=== PATIENT | female | born 1955 | race Hispanic/Latino ===

== ENCOUNTER 2017-08-10 10:52 | Outpatient (CLI) | payer BC | END 2017-08-10 10:53 | disposition home or self-care (01) | LOC: BICRAD 10:52 | PROVIDERS: ATTEND Family Medicine | DX: M79.641 Pain in right hand (principal) ==

== ENCOUNTER 2018-04-20 09:01 | Outpatient (CLI) | payer BC ==
--- NOTE | 2018-04-20 10:07 | RAD ---
CERVICAL SPINE FOUR VIEWS: History: Neck pain. Right arm radiculopathy. FINDINGS: Vertebral body height and alignment are maintained. Cervicothoracic junction intact. No acute fractur e, dislocation, or aggressive osseous erosions. Calcification overlies each carotid bifurcation. IMPRESSION: No acute osseous abnormalities are demonstrated. Atherosclerosis. POS: [facility]
== END 2018-04-20 09:02 | disposition home or self-care (01) ==
LOC: BICRAD 09:01
PROVIDERS: ATTEND Family Medicine
DX: M54.2 Cervicalgia (principal); I70.90 Unspecified atherosclerosis
CPT/HCPCS: 72040

== ENCOUNTER 2018-05-30 08:12 | Outpatient (CLI) | payer BC | END 2018-05-30 08:13 | disposition home or self-care (01) | LOC: BICMAMMO 08:12 | PROVIDERS: ATTEND Family Medicine | DX: Z12.31 Encounter for screening mammogram for malignant neoplasm of breast (principal) | CPT/HCPCS: 77063; 77067 ==

== ENCOUNTER 2018-06-14 09:02 | Outpatient (CLI) | payer BC ==
--- NOTE | 2018-06-14 09:59 | ULT ---
LIMITED RIGHT BREAST ULTRASOUND: Date: 06/14/18 PROVIDED CLINICAL HISTORY: Abnormal mammogram. FINDINGS: Limited sonographic interrogation of the right breast was performed at the 10 o'clock position in the region of mammographic concern. There is a 5.0 mm hypoechoic mass present with a small hypoechoic ta il. The margins of this process are somewhat lobulated. There is no definite posterior shadowing. Thi s approximates the chest wall on sonography. IMPRESSION: BIRADS Category 4 - Suspicious abnormality. Biopsy is recommended. 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 POS: [facility]
== END 2018-06-14 09:03 | disposition home or self-care (01) ==
LOC: BICMAMMO 09:02
PROVIDERS: ATTEND Family Medicine
DX: R92.2 Inconclusive mammogram (principal); N64.89 Other specified disorders of breast
CPT/HCPCS: G0279

== ENCOUNTER → 2018-06-19 | Day surgery (SDC) | payer BC ==
--- NOTE | 2018-06-19 14:37 | ULT ---
SONOGRAPHIC GUIDED RIGHT BREAST MASS BIOPSY AND CLIP PLACEMENT: History: Right breast mass. FINDINGS: After explaining the procedure and answering all questions, the small hypoechoic mass at the 10 o'alan ck position right breast was visualized. Sterile technique, buffered local anesthesia, sonographic gu idance and an infralateral approach were used to carefully advance a 14 gauge biopsy needle to the le walter of the mass. Position was confirmed with sonography. A total of three passes were made. Tissue ev entually submitted to pathology for evaluation. Localization clip was placed in the biopsy bed under sonographic guidance. Post procedure imaging shows no evidence of complication. Patient tolerated the procedure well and was dismissed in good condition. IMPRESSION: Technically successful sonographically guided right breast mass biopsy. Pathology is pending. POS: [facility]
== END ==
LOC: BICULT 12:46
PROVIDERS: ATTEND Family Medicine
PROC: 0HBT3ZX Excision of Right Breast, Percutaneous Approach, Diagnostic (ICD-10-PCS; principal; 2018-06-19)
DX: N62 Hypertrophy of breast (principal)
CPT/HCPCS: 19083; 88305; 88341; 88342

== ENCOUNTER 2018-07-20 06:22 | Outpatient (CLI) | payer BC ==
[2018-07-20 12:15] LABS: #Eosinphils 0.1 thou/uL (0.0-0.7); #Lymphocytes 2.1 thou/uL (1.20-3.40); #Monocytes 0.3 thou/uL (0.11-0.59); #Neutrophils 3.3 thou/uL (1.40-6.50); %Basophils 0.4 % (0.0-1.0); %Eosinophils 2.3 % (0.0-10.0); %Lymphocytes 36.5 % (21.0-51.0); %Monocytes 5.7 % (0.0-10.0); %Neutrophils 55.3 % (42.0-75.0); Hemoglobin 13.6 g/dL (12.0-16.0); Mean Corpuscular HGB CONC 33.5 g/dL (32.0-36.0); Mean Corpuscular Volume 89.6 fL (78.0-98.0); Mean Platelet Volume 6.9 fL (7.4-10.4); Platelet Count 255 thou/uL (130-400); RBC Distribution Width 11.8 % (11.5-14.5); Red Blood Cell (RBC) Count 4.52 mill/uL (4.20-5.40); White Blood Cell (WBC) Count 5.9 thou/uL (4.8-10.8)
[2018-07-20 12:36] LABS: Anion Gap 12 mmol/L (10-20); BUN (Urea Nitrogen) 19 mg/dL (9.8-20.1); Calc. Creatinine Clearance 0 mL/min (70-130); Calcium 9.4 mg/dL (7.8-10.44); Carbon Dioxide 26 mmol/L (23-31); Chloride 104 mmol/L (98-107); Estimated GFR-MDRD Greater than 90; Glucose 96 mg/dL (80-115); Sodium 138 mmol/L (136-145)
== END 2018-07-20 06:23 | disposition home or self-care (01) ==
LOC: LABBT 06:22
PROVIDERS: ATTEND Specialist
DX: Z01.812 Encounter for preprocedural laboratory examination (principal); N64.89 Other specified disorders of breast
CPT/HCPCS: 80048; 85025

== ENCOUNTER 2018-07-24 07:01 | Day surgery (SDC) | payer BC ==
[2018-07-20 11:17] VITALS: BMI 19.3
[2018-07-24] MEDS ORDERED: CEFAZOLIN 2 GM/50 ML BAG ONE (08:32)
[2018-07-24] MEDS ORDERED: Ketorolac Tromethamine 30 MG/ML VIAL ONE (08:32)
[2018-07-24] MEDS ORDERED: Bupivacaine/Epinephrine 0.25% 30 ML VIAL ONE (09:50)
[2018-07-24] MEDS ORDERED: Fentanyl 100 MCG/2 ML VIAL ONE (09:59)
[2018-07-24] MEDS ORDERED: Dexamethasone 20 MG/5 ML VIAL ONE (12:57)
[2018-07-24] MEDS ORDERED: PHENYLEPHRINE-NS 100 MCG/ML 10 ML SYRINGE ONE (12:57)
[2018-07-24] MEDS ORDERED: PROPOFOL 200 MG/20 ML VIAL ONE (12:57)
[2018-07-24] MEDS ORDERED: Ondansetron PF 4 MG/2 ML Vial ONE (12:57)
--- NOTE | 2018-07-24 13:01 | MMO ---
RADIOGRAPH SURGICAL SPECIMEN: DATE: 07/24/2018. HISTORY: A 63-year-old female with right breast cancer demonstrated by ultrasound-guided biopsy. This is a po st needle localization surgical excisional specimen. FINDINGS: The specimen does contain the biopsy clip. IMPRESSION: 1. Successful mammographically guided right breast needle localization. 2. Successful right breast excisional biopsy. POS: [facility]
--- NOTE | 2018-07-25 11:52 | MMO ---
MAMMOGRAPHIC GUIDED NEEDLE AND WIRE LOCALIZATION OF RIGHT BREAST BIOPSY MARKER CLIP: 07/24/2018 HISTORY: Patient with recent biopsy demonstrating papillary/hypoplastic lesion. Pathology results also sugges hannah excisional biopsy. TECHNIQUE: After informed consent was obtained, the biopsy marker clip was localized in the CC projection with a grid localizer. An area was marked and meticulously prepped and draped in the usual sterile fashion . The skin and subcutaneous tissues were infiltrated with buffered 1% Lidocaine for local anesthesia . A 5 cm [place] localization needle was advanced, followed by CC and lateral medical projections. The wire was then advanced, and follow-up imaging was obtained. A dry, sterile dressing was placed, and the patient was transported to the operating room for excisional biopsy. The patient tolerated the procedure well and without immediate complication. A specimen mammogram was performed, which did demonstrate the localization wire adjacent to the biops y marker clip in the area of increased density within the provided specimen. IMPRESSION: Technically successful mammographic-guided needle and wire localization of right breast biopsy marker clip. POS: [facility]
--- NOTE | 2018-07-25 14:59 | OP ---
DATE OF PROCEDURE: 07/24/2018 PREOPERATIVE DIAGNOSIS: Right breast atypical lesion (seen on ultrasound-guided needle biopsy). POSTOPERATIVE DIAGNOSIS: Right breast atypical lesion (seen on ultrasound-guided needle biopsy). OPERATION PERFORMED: Right breast needle localized excisional biopsy. ANESTHESIA: General with laryngeal mask airway. INDICATIONS: The patient is a 63-year-old female. She recently had a radiographic abnormalities, which prompted a biopsy of the right breast. This revealed a small area of atypical tissue for which a completion excisional biopsy was recommended. She presents for this purpose. DESCRIPTION OF OPERATION: Informed consent was obtained, the patient was taken to the operating room and general anesthesia obtained. The patient supine position. She had undergone preoperative mammographic needle localization of the right breast mass. This entered from a superior location on the right breast and extended inferiorly down towards the nipple. The lesion was at about the 11 o'clock radian in the upper outer right breast. The breast and needle were prepped with a ChloraPrep and draped in sterile fashion. Local anesthetic was infiltrated using 0.25% Marcaine with epinephrine and a transverse incision was created as a counter incision a couple of cm inferior to the needle insertion site. Dissection was carried through skin and subcutaneous tissue. Flaps were raised in all directions and then attention was turned superiorly. The needle was identified and this level was about 3 cm from the tip of the needle. The clip was at about 1 cm from the tip of the needle. The needle was removed and the wire was then relocated to the incision rather than through the skin. The tissue in which two wire entered was grasped with Allis clamps and a completion lumpectomy was then performed around the needle. The dissection was carried down to the chest wall. A good margin was obtained around the wire. Care had to be taken because she has fairly small breasts. The specimen was removed intact and tagged for orientation and submitted for specimen mammography. This revealed the clip was in the expected location. Meticulous hemostasis obtained within the wound. The wound was closed in layers using 3-0 and 4-0 Monocryl suture and Dermabond was placed externally. Additional local anesthetic was placed in the wound bed during closure. There were no complications. The patient tolerated the procedure well and was taken to recovery room in stable condition to take dispensed x2. Job ID: [id number]
== END 2018-07-24 13:09 | disposition home or self-care (01) ==
LOC: SDC 07:01
PROVIDERS: ATTEND Specialist
PROC: 0HBT0ZZ Excision of Right Breast, Open Approach (ICD-10-PCS; principal; 2018-07-24)
DX: C50.411 Malignant neoplasm of upper-outer quadrant of right female breast (principal); Z79.51 Long term (current) use of inhaled steroids; Z91.041 Radiographic dye allergy status
CPT/HCPCS: 19281; 76098; 88307; 88341; 88342; J0131; J1100; J1885; J2405; J2704; J3010

== ENCOUNTER 2018-09-03 12:22 | Outpatient (CLI) | payer BC ==
[2018-09-03 13:33] LABS: #Basophils 0.1 thou/uL (0.0-0.2); #Eosinphils 0.1 thou/uL (0.0-0.7); #Lymphocytes 2.4 thou/uL (1.20-3.40); #Monocytes 0.4 thou/uL (0.11-0.59); #Neutrophils 3.5 thou/uL (1.40-6.50); %Basophils 0.9 % (0.0-1.0); %Eosinophils 1.6 % (0.0-10.0); %Lymphocytes 36.8 % (21.0-51.0); %Monocytes 5.9 % (0.0-10.0); %Neutrophils 54.8 % (42.0-75.0); Hemoglobin 14.1 g/dL (12.0-16.0); Mean Corpuscular HGB CONC 33.5 g/dL (32.0-36.0); Mean Corpuscular Hemoglobin 30.5 pg (27.0-31.0); Mean Corpuscular Volume 91.3 fL (78.0-98.0); Mean Platelet Volume 7.1 fL (7.4-10.4); Platelet Count 268 thou/uL (130-400); RBC Distribution Width 11.8 % (11.5-14.5); Red Blood Cell (RBC) Count 4.62 mill/uL (4.20-5.40); White Blood Cell (WBC) Count 6.5 thou/uL (4.8-10.8)
[2018-09-03 13:58] LABS: Anion Gap 13 mmol/L (10-20); BUN (Urea Nitrogen) 16 mg/dL (9.8-20.1); Calc. Creatinine Clearance 0 mL/min (70-130); Calcium 10.1 mg/dL (7.8-10.44); Carbon Dioxide 26 mmol/L (23-31); Chloride 103 mmol/L (98-107); Estimated GFR-MDRD 85; Glucose 103 mg/dL (80-115); Potassium 4.1 mmol/L (3.5-5.1); Sodium 138 mmol/L (136-145)
--- NOTE | 2018-09-04 07:45 | EKG ---
Test Reason : Blood Pressure : / mmHG Vent. Rate : 069 BPM Atrial Rate : 069 BPM P-R Int : 150 ms QRS Dur : 088 ms QT Int : 392 ms P-R-T Axes : 070 080 068 degrees QTc Int : 420 ms Normal sinus rhythm Normal ECG No previous ECGs available Confirmed by KINGSLEY JETT ([id number]) on 09/04/2018 7:45:45 AM Referred By: ALEC Confirmed By:KINGSLEY JETT
== END 2018-09-03 12:23 | disposition home or self-care (01) ==
LOC: LABBT 12:22
PROVIDERS: ATTEND Specialist
DX: Z01.818 Encounter for other preprocedural examination (principal); C50.911 Malignant neoplasm of unspecified site of right female breast
CPT/HCPCS: 80048; 85025; 93005; 93010

== ENCOUNTER 2018-09-13 08:16 | Inpatient (IN) | payer BC ==
[2018-09-13] MEDS ORDERED: Ketorolac Tromethamine 30 MG/ML VIAL ONE (10:09)
--- NOTE | 2018-09-13 11:13 | NM ---
LYMPHOSCINTIGRAPHY RIGHT BREAST: CLINICAL HISTORY: Malignant neoplasm unspecified site of the right female breast. PROCEDURE: Informed consent was obtained. The patient was escorted to the procedural suite and placed in supine position. The right breast was prepped and draped in standard sterile fashion. Subsequently, a tot al of 0.44 mCi Technetium 99m filtered sulfur colloid was injected in 4 separate aliquots in a periar eolar distribution of the right breast. No procedural complications. The patient tolerated the proc edure well. FINDINGS: There is scintigraphic activity localized in the right axillary lymph node. IMPRESSION: Technically successful lymphoscintigraphy of right breast yielding activity within right axillary lym ph node. POS: [facility]
[2018-09-13] MEDS ORDERED: Fentanyl 250 MCG/5 ML VIAL ONE (13:10)
[2018-09-13] MEDS ORDERED: Bupivacaine/Epinephrine 0.25% 30 ML VIAL ONE (13:12)
[2018-09-13] MEDS ORDERED: Isosulfan Blue 50 MG/5 ML VIAL ONE (13:12)
[2018-09-13] MEDS ORDERED: Ondansetron PF 4 MG/2 ML Vial ONE (14:22)
[2018-09-13] MEDS ORDERED: PROPOFOL 200 MG/20 ML VIAL ONE (14:22)
[2018-09-13] MEDS ORDERED: Glycopyrrolate 0.2 MG/ML 5 ML SYRINGE ONE (14:22)
[2018-09-13] MEDS ORDERED: PHENYLEPHRINE-NS 100 MCG/ML 10 ML SYRINGE ONE (14:22)
[2018-09-13] MEDS ORDERED: Rocuronium Bromide 10 MG/ML (10ML VIAL) ONE (14:22)
[2018-09-13] MEDS ORDERED: Lidocaine 1% PF 5 ML VIAL ONE (14:22)
[2018-09-13] MEDS ORDERED: Promethazine HCl 25 MG/ML VIAL SLOW IVP PRN (15:50)
[2018-09-13] MEDS ORDERED: Promethazine HCl 25 MG/ML VIAL IM PRN ×2 (15:50→17:07)
[2018-09-13] MEDS ORDERED: Ondansetron HCl/PF 4 MG/2 ML Vial IVP PRN (15:50)
[2018-09-13] MEDS ORDERED: Dextrose 5% in Water 1,000 ML IV PRN (17:07)
[2018-09-13] MEDS ORDERED: Dextrose 50% Abboject 50 ML SYRINGE SLOW IVP PRN (17:07)
[2018-09-13] MEDS ORDERED: hydrALAZINE 20 MG/ML VIAL SLOW IVP PRN (17:07)
[2018-09-13] MEDS ORDERED: Ondansetron PF 4 MG/2 ML Vial IVP PRN (17:07)
[2018-09-13] MEDS ORDERED: D5 1/2 NS w/20 mEq KCL 1,000 ML IV SCH (17:07)
[2018-09-13] MEDS ORDERED: Morphine 4 MG/ML VIAL SLOW IVP PRN ×2 (17:07)
[2018-09-13] MEDS ORDERED: Fentanyl 100 MCG/2 ML VIAL ONE (17:14)
[2018-09-13 18:16] VITALS: BMI 20.7
[2018-09-13] MEDS: Famotidine 20 MG TAB PO SCH (20:13)
[2018-09-14 06:03] LABS: Anion Gap 14 mmol/L (10-20); BUN (Urea Nitrogen) 9 mg/dL (9.8-20.1); Calc. Creatinine Clearance 78 mL/min (70-130); Calcium 8.9 mg/dL (7.8-10.44); Carbon Dioxide 20 mmol/L (23-31); Chloride 107 mmol/L (98-107); Estimated GFR-MDRD Greater than 90; Glucose 129 mg/dL (80-115); Potassium 4.6 mmol/L (3.5-5.1); Sodium 136 mmol/L (136-145)
[2018-09-14 06:13] LABS: #Eosinphils 0.1 thou/uL (0.0-0.7); #Lymphocytes 1.8 thou/uL (1.20-3.40); #Monocytes 0.8 thou/uL (0.11-0.59); #Neutrophils 7.6 thou/uL (1.40-6.50); %Basophils 0.2 % (0.0-1.0); %Eosinophils 0.5 % (0.0-10.0); %Lymphocytes 17.8 % (21.0-51.0); %Monocytes 7.6 % (0.0-10.0); %Neutrophils 73.8 % (42.0-75.0); Hemoglobin 12.5 g/dL (12.0-16.0); Mean Corpuscular Hemoglobin 29.4 pg (27.0-31.0); Mean Corpuscular Volume 88.9 fL (78.0-98.0); Platelet Count 198 thou/uL (130-400); RBC Distribution Width 11.7 % (11.5-14.5); Red Blood Cell (RBC) Count 4.24 mill/uL (4.20-5.40); White Blood Cell (WBC) Count 10.3 thou/uL (4.8-10.8)
[2018-09-14 07:56] VITALS: BP 99/64
[2018-09-14] MEDS: Famotidine 20 MG TAB PO SCH (08:34)
[2018-09-14] MEDS ORDERED: Prevnar 13-Val Conj/PF 0.5 ML SYRINGE IM ONE (09:00)
[2018-09-14 11:41] VITALS: TEMP 98.5
--- NOTE | 2018-09-17 14:21 | OP ---
DATE OF PROCEDURE: 09/13/2018 PREOPERATIVE DIAGNOSIS: Right breast cancer. POSTOPERATIVE DIAGNOSIS: Right breast cancer. OPERATION PERFORMED: Bilateral nipple sparing mastectomy and right axillary sentinel lymph node biopsy. ANESTHESIA: General endotracheal. INDICATIONS: The patient is a 63-year-old female. She has fairly small breasts. She had a recent needle biopsy of a lesion in the right breast that revealed atypia and an excisional biopsy revealed invasive ductal carcinoma with positive margins. After discussing options for further treatment with the patient, she has elected to proceed with bilateral nipple sparing mastectomy with planned postoperative reconstruction. Prior to going to the operating room, she had lymphoscintigraphy performed revealing right axillary sentinel lymph node. DESCRIPTION OF OPERATION: Informed consent was obtained. The patient was taken to the operating room where general endotracheal anesthesia was obtained with the patient in supine position. 3 mL of Lymphazurin was infiltrated in the right breast in the periareolar subdermal tissue and the breast was massaged for 5 minutes. Bilateral breasts were then prepped with ChloraPrep and draped in sterile fashion. Attention was turned first to the sentinel node. A transverse infra-axillary incision was created. Dissection was carried through the skin and subcutaneous tissue. Neoprobe was used to identify areas of maximum radio intensity and guided the dissection. I was able to identify two separate lymph nodes of both blue-stained and radioactive and these were removed and submitted as a specimen. The investing lymphatics were divided between hemostats and 3-0 silk ties. These were submitted for permanent cytology. Hemostasis was obtained within the wound with electrocautery and the wound was closed in layers with 3-0 and 4-0 Monocryl. Attention was then turned to the breast. A bilateral nipple sparing mastectomy was performed through an inframammary crease incision. The operation was identical on both sides except that there was some scarring under the skin at the site of the biopsy in the upper right breast. Additionally, a subareolar disc of tissue was submitted for frozen section on the right breast to ensure there was no malignancy involving the nipple and there was none. After creation of the inframammary incision, dissection was carried through the skin and subcutaneous tissue. Dissection was carried down to the chest wall. The breast was dissected off the underlying muscular fascia using PlasmaBlade cautery. After the breast was fully elevated off the chest wall, attention was then turned to the skin, which was carefully dissected off the underlying breast tissue, attempting to keep an appropriate volume of subcutaneous fatty tissue to maintain flap viability. Dissection was carried out to the medial superior and lateral aspect of the breast down to the chest wall and the specimen was removed intact. It was tagged for orientation and submitted as a pathologic specimen. Meticulous hemostasis was obtained. The wound was irrigated with saline. Bilateral drains of #19 round fluted drains were placed and brought out laterally and inferiorly and secured with 3-0 nylon suture. The wound was then closed in layers with 3-0 and 4-0 Monocryl suture. Dermabond was placed over all 3 incisions. A fluff gauze dressing was placed across the chest wall and the chest was wrapped circumferentially with a [place] wrap. There were no complications. Blood loss was minimal. The patient tolerated the procedure well and was taken to the recovery room in stable condition. Job ID: [id number]
--- NOTE | 2018-09-20 06:43 | PQF ---
RAPHAEL ZAVALA,COURTNEY AREVALO MD [id number] [facility] [id number]- [id number] CLINICAL DOCUMENTATION CLARIFICATION FORM: POST DISCHARGE Addendum to original discharge summary date: ____ Late entry note date: __ DATE: 09/20/18 ATTN: Dr. Santillan, Please exercise your independent, professional judgment in responding to the clarification form. Clinical indicators are provided on the bottom of this form for your review ___ Final Diagnosis on the Pathology report: Right axillary sentinel lymph nodes x(2) One of two lymph nodes positive for metastatic carcinoma Clarification of Pathology report: Please check appropriate box(s): [ x ] Agree w the pathology finding of:__Node positive breast cancer. (see note below)___ [ ] Other explanation of pathology findings (please specify) [ ] Other diagnosis [ ] Unable to determine For continuity of documentation, please document condition throughout progress notes and discharge summary. Thank You. CLINICAL INDICATORS - SIGNS/ SYMPTOMS / LABS Right breast cancer---09/13 H&P RISK FACTORS Right breast cancer--09/13 H&P TREATMENTS Bilateral nipple sparing mastectomy and right axillary sentinel lymph node biopsy---performed 09/13/18 Thank you, Radha Spicer, [facility] 09/20/18 6:39AM (This form is maintained as a part of the permanent medical record) 2014 [employer] All Rights Reserved Radha [email or web address] [phone] This path report was not available until AFTER her discharge. She has disease metastatic to one lymph node. I can't ammend a progress note or discharge summary at this time. AASHISH POWERS
== END 2018-09-14 15:01 | disposition home or self-care (01) | DRG 582 ==
LOC: SDC 08:16 → SURG A 17:07
PROVIDERS: ADMIT Specialist; ATTEND Specialist
PROC: 0HTV0ZZ Resection of Bilateral Breast, Open Approach (ICD-10-PCS; principal; 2018-09-13)
PROC: C71L1ZZ Planar Nuclear Medicine Imaging of Upper Chest Lymphatics using Technetium 99m (Tc-99m) (ICD-10-PCS; 2018-09-13)
DX: C50.911 Malignant neoplasm of unspecified site of right female breast (principal); C77.3 Secondary and unspecified malignant neoplasm of axilla and upper limb lymph nodes; Z17.1 Estrogen receptor negative status [ER-]; Z91.041 Radiographic dye allergy status
CPT/HCPCS: 36416; 78195; 80048; 85025; 88305; 88307; 88331; 88333; 88334; 88342; A9541; J0131; J1885; J2001; J2270; J2405; J2704; J3010; Q9968

== ENCOUNTER 2018-10-04 09:07 | Outpatient (CLI) | payer BC ==
--- NOTE | 2018-10-04 11:01 | BD ---
DEXA BONE DENSITY EXAM: HISTORY: A 63-year-old postmenopausal female for screening. COMPARISON: None. FINDINGS: LUMBAR SPINE BMD (g/cm2) T-SCORE L1 0.745 -2.2 L2 0.823 -1.9 L3 0.887 -1.8 L4 0.890 -1.6 TOTAL L1-L4 0.841 -1.9 LEFT FEMORAL NECK 0.614 -2.1 TOTAL PROXIMAL LEFT FEMUR 0.742 -1.6 IMPRESSION: Osteopenia. This patient has a 10 year WHO fracture risk for a major osteoporotic fracture of 4.9% a nd for a hip fracture of 0.7%. POS: [facility]
== END 2018-10-04 09:08 | disposition home or self-care (01) ==
LOC: BICMAMMO 09:07
PROVIDERS: ATTEND Internal Medicine
DX: Z13.820 Encounter for screening for osteoporosis (principal); Z78.0 Asymptomatic menopausal state; C50.111 Malignant neoplasm of central portion of right female breast; T38.6X5A Adverse effect of antigonadotrophins, antiestrogens, antiandrogens, not elsewhere classified, initial encounter; M85.89 Other specified disorders of bone density and structure, multiple sites
CPT/HCPCS: 77080

== ENCOUNTER 2018-10-05 11:34 | Day surgery (SDC) | payer BC ==
[2018-10-04 10:38] VITALS: BMI 19.8
[2018-10-05] MEDS ORDERED: Heparin 5,000 UNITS/ML VIAL ONE (12:05)
[2018-10-05] MEDS ORDERED: Fentanyl 100 MCG/2 ML VIAL ONE ×3 (13:17→17:27)
[2018-10-05] MEDS ORDERED: Midazolam HCl 2 mg/2 ml Vial ONE (13:17)
[2018-10-05] MEDS ORDERED: HYDROmorphone 2 MG/ML VIAL ONE (13:18)
[2018-10-05] MEDS ORDERED: Ondansetron PF 4 MG/2 ML Vial ONE (13:31)
[2018-10-05] MEDS ORDERED: Ketorolac Tromethamine 30 MG/ML VIAL ONE (13:31)
[2018-10-05] MEDS ORDERED: PROPOFOL 200 MG/20 ML VIAL ONE (13:31)
[2018-10-05] MEDS ORDERED: Lidocaine 1% PF 5 ML VIAL ONE (13:31)
[2018-10-05] MEDS ORDERED: PHENYLEPHRINE-NS 100 MCG/ML 10 ML SYRINGE ONE (13:31)
[2018-10-05] MEDS ORDERED: Dexamethasone 20 MG/5 ML VIAL ONE (13:31)
[2018-10-05] MEDS ORDERED: Gentamicin 80 MG/2 ML VIAL ONE ×2 (13:50→13:53)
[2018-10-05] MEDS ORDERED: Bupivacaine/Epinephrine 0.25% 30 ML VIAL ONE ×2 (13:50)
[2018-10-05] MEDS ORDERED: Sodium Chloride 0.9% 10 ML ONE (13:50)
[2018-10-05] MEDS ORDERED: Dexamethasone 4 mg/ml Vial ONE (14:45)
[2018-10-05] MEDS ORDERED: Promethazine HCl 25 MG/ML VIAL IM/IV PRN (16:57)
[2018-10-05] MEDS ORDERED: Ondansetron HCl/PF 4 MG/2 ML Vial IVP PRN (16:57)
[2018-10-05] MEDS ORDERED: HYDROcodone/Acetaminophen 5/325 mg Tablet ONE (19:30)
--- NOTE | 2018-10-08 11:05 | OP ---
DATE OF PROCEDURE: 10/05/2018 PREOPERATIVE DIAGNOSIS: Breast cancer. POSTOPERATIVE DIAGNOSIS: Breast cancer. PROCEDURES PERFORMED: 1. Status post bilateral mastectomy. 2. Bilateral placement of tissue expanders for breast reconstruction (17173.50). DESCRIPTION OF PROCEDURE: Following the induction of adequate anesthesia, the patient was prepped and draped in usual sterile fashion in the supine position. The bilateral inframammary crease scars were incised. Dissection was carried sharply down through the underlying subcutaneous tissue to the pectoralis fascia, which was incised. Subsequently, an adequate submuscular pocket was created with release of the inferior attachments of the pectorals major muscle. The pocket was copiously irrigated with a dilute antibiotic solution and inspected for meticulous hemostasis prior to placement of OsteoSet antibiotic beads and an 11 cm wide smooth [place] tissue dietary clerk. The tissue dietary clerk was secured to 6 o'clock with 2-0 Prolene suture. The incision was then closed with 3-0 PDS suture and 3-0 and 4-0 Monocryl sutures. The dietary clerk was accessed transcutaneously to its port. The dietary clerk was filled to 100 mL of normal saline. Similar procedure was done on each side. OPERATIVE FINDINGS: Each dietary clerk was filled to a volume of 100 mL. The mastectomy specimens ranged from 120 to 140 g. The patient tolerated the procedure well. Job ID: [id number]
== END 2018-10-05 19:58 | disposition home or self-care (01) ==
LOC: SDC 11:34
PROVIDERS: ATTEND Plastic Surgery
PROC: 0HHV0NZ Insertion of Tissue Expander into Bilateral Breast, Open Approach (ICD-10-PCS; principal; 2018-10-05)
DX: Z42.1 Encounter for breast reconstruction following mastectomy (principal); Z85.3 Personal history of malignant neoplasm of breast; Z91.041 Radiographic dye allergy status; Z90.13 Acquired absence of bilateral breasts and nipples
CPT/HCPCS: C1713; J1100; J1170; J1580; J1644; J2250; J3010; J3370; J3490

== ENCOUNTER → 2019-07-01 | Day surgery (SDC) | payer BC ==
[2019-06-28 12:08] VITALS: BMI 20.5
[~2019-07-01] MED LIST: Bupivacaine 0.25% HCL 30 ML VIAL ONE; EPINEPHrine 1 MG/ML AMP ONE; Fentanyl 250 MCG/5 ML VIAL ONE; Gentamicin 80 MG/2 ML VIAL ONE; Heparin 5,000 UNITS/ML VIAL ONE
[2019-07-01 09:06] LABS: #Eosinphils 0.1 thou/uL (0.0-0.7); #Monocytes 0.6 thou/uL (0.11-0.59); %Basophils 0.3 % (0.0-1.0); %Eosinophils 1.1 % (0.0-10.0); %Lymphocytes 20.9 % (21.0-51.0); %Monocytes 13.1 % (0.0-10.0); %Neutrophils 64.6 % (42.0-75.0); Hemoglobin 12.9 g/dL (12.0-16.0); Mean Corpuscular HGB CONC 33.1 g/dL (32.0-36.0); Mean Corpuscular Hemoglobin 29.9 pg (27.0-31.0); Mean Corpuscular Volume 90.3 fL (78.0-98.0); Mean Platelet Volume 6.8 fL (7.4-10.4); Platelet Count 208 thou/uL (130-400); RBC Distribution Width 11.9 % (11.5-14.5); Red Blood Cell (RBC) Count 4.32 mill/uL (4.20-5.40); White Blood Cell (WBC) Count 4.7 thou/uL (4.8-10.8)
[2019-07-01 09:27] LABS: Anion Gap 14 mmol/L (10-20); BUN (Urea Nitrogen) 12 mg/dL (9.8-20.1); Calc. Creatinine Clearance 76 mL/min (70-130); Calcium 8.2 mg/dL (7.8-10.44); Carbon Dioxide 22 mmol/L (23-31); Chloride 107 mmol/L (98-107); Estimated GFR-MDRD Greater than 90; Glucose 97 mg/dL (80-115); Potassium 3.6 mmol/L (3.5-5.1); Sodium 139 mmol/L (136-145)
== END | disposition home or self-care (01) ==
LOC: SDC 08:27
PROVIDERS: ATTEND Plastic Surgery
DX: C50.911 Malignant neoplasm of unspecified site of right female breast (principal); C50.912 Malignant neoplasm of unspecified site of left female breast; Z53.8 Procedure and treatment not carried out for other reasons
CPT/HCPCS: 36415; 80048; 85025; J0171; J0690; J1580; J1644; J3010; J3370; J3490; S0020

== ENCOUNTER 2019-07-03 15:05 | Day surgery (SDC) | payer BC ==
[2019-07-02 10:20] VITALS: BMI 20.5
[~2019-07-03 15:05] MED LIST changes: -Bupivacaine 0.25% HCL 30 ML VIAL ONE; +Dexamethasone 10 MG/ML VIAL ONE; -EPINEPHrine 1 MG/ML AMP ONE; -Fentanyl 250 MCG/5 ML VIAL ONE; -Gentamicin 80 MG/2 ML VIAL ONE; -Heparin 5,000 UNITS/ML VIAL ONE; +Ondansetron PF 4 MG/2 ML Vial ONE; +PHENYLEPHRINE-NS 100 MCG/ML 10 ML SYRINGE ONE; +PROPOFOL 200 MG/20 ML VIAL ONE
[2019-07-03] MEDS ORDERED: Heparin 5,000 UNITS/ML VIAL ONE (17:00)
[2019-07-03] MEDS ORDERED: Fentanyl 100 MCG/2 ML VIAL ONE (17:02)
[2019-07-03] MEDS ORDERED: Midazolam HCl 2 mg/2 ml Vial ONE (17:02)
[2019-07-03] MEDS ORDERED: HYDROmorphone 0.5 MG/0.5 ML SYRINGE ONE (17:03)
[2019-07-03] MEDS ORDERED: Bupivacaine 0.25% HCL 30 ML VIAL ONE (17:13)
[2019-07-03] MEDS ORDERED: Sodium Chloride 0.9% 20 ML ONE (17:13)
[2019-07-03] MEDS ORDERED: EPINEPHrine 1 MG/ML AMP ONE (17:13)
[2019-07-03] MEDS ORDERED: Gentamicin 80 MG/2 ML VIAL ONE (17:13)
--- NOTE | 2019-07-04 09:50 | OP ---
DATE OF PROCEDURE: 07/03/2019 PREOPERATIVE DIAGNOSES: 1. Breast cancer. 2. Status post bilateral mastectomy. 3. Status post bilateral tissue professor of languages placement. PROCEDURES PERFORMED: 1. Bilateral replacement of tissue expanders with permanent breast prosthesis with extensive capsular work (06320.50). 2. Bilateral fat grafting of breast reconstruction (). OPERATIVE FINDINGS: Right breast implant, reference #[id number], serial #[id number]. Left breast implant, reference #[id number], serial #[id number]. DESCRIPTION OF PROCEDURE: Following induction of adequate anesthesia, the patient was prepped and draped in usual sterile fashion in supine position. The existing inframammary crease scar was incised. Dissection was carried sharply down through the subcutaneous tissue to the underlying capsule, which was incised. The in place professor of languages was deflated and removed. Capsulotomies were then performed from 9 o'clock to 12 o'clock to 3 o'clock as well as radially to technician helper instrument in expansion. The pocket was copiously irrigated with antibiotic solution as well as dilute Betadine solution prior to placement of antibiotic beads and then the above implant. The incision was closed with 3-0 PDS suture and 3-0 Monocryl suture. Similar procedure was done then on the left side. Attention was turned to the fat grafting. The right armando-abdomen was infiltrated with tumescent fluid. After this had adequate time to take effect, a traditional liposuction was performed to harvest fat, which was allowed to separate by gravity. Fluid was then decanted. The fat was injected through small stab incision in a micro droplet technique to bilateral inner lower quadrant as well as the axilla of the left. The patient tolerated the procedure well. Job ID: [id number]
== END 2019-07-03 21:40 | disposition home or self-care (01) ==
LOC: SDC 15:05
PROVIDERS: ATTEND Plastic Surgery
PROC: 0JB60ZZ Excision of Chest Subcutaneous Tissue and Fascia, Open Approach (ICD-10-PCS; principal; 2019-07-03)
PROC: 0HRV0JZ Replacement of Bilateral Breast with Synthetic Substitute, Open Approach (ICD-10-PCS; principal; 2019-07-03)
DX: C50.911 Malignant neoplasm of unspecified site of right female breast (principal); C50.912 Malignant neoplasm of unspecified site of left female breast; I10 Essential (primary) hypertension; E11.9 Type 2 diabetes mellitus without complications; E78.00 Pure hypercholesterolemia, unspecified; Z79.899 Other long term (current) drug therapy; Z91.041 Radiographic dye allergy status
CPT/HCPCS: C1713; C1789; J0171; J0690; J1100; J1170; J1580; J1644; J2250; J2405; J2704; J3010; J3370; J3490; S0020

== ENCOUNTER 2020-11-20 08:12 | Outpatient (CLI) | payer BC | END 2020-11-20 08:13 | disposition home or self-care (01) | LOC: BICMAMMO 08:12 | PROVIDERS: ATTEND Internal Medicine Hematology & Oncology | DX: M85.89 Other specified disorders of bone density and structure, multiple sites (principal); C50.111 Malignant neoplasm of central portion of right female breast; T38.6X5A Adverse effect of antigonadotrophins, antiestrogens, antiandrogens, not elsewhere classified, initial encounter; M85.88 Other specified disorders of bone density and structure, other site | CPT/HCPCS: 77080 ==

== ENCOUNTER 2021-11-23 08:01 | Outpatient (CLI) | payer BC | END 2021-11-23 08:02 | disposition home or self-care (01) | LOC: BICMAMMO 08:01 | PROVIDERS: ATTEND Internal Medicine Hematology & Oncology | DX: M85.89 Other specified disorders of bone density and structure, multiple sites (principal); T38.6X5A Adverse effect of antigonadotrophins, antiestrogens, antiandrogens, not elsewhere classified, initial encounter | CPT/HCPCS: 77080 ==

== ENCOUNTER 2021-11-25 08:05 | Outpatient (CLI) | payer BC ==
[2021-11-25 08:35] LABS: Estimated GFR-MDRD - POC Greater than 90
== END 2021-11-25 08:06 | disposition home or self-care (01) ==
LOC: CT 08:05
PROVIDERS: ATTEND Urology
DX: R31.9 Hematuria, unspecified (principal); N32.89 Other specified disorders of bladder; K76.89 Other specified diseases of liver
CPT/HCPCS: 74178; 82565

== ENCOUNTER 2022-11-30 09:27 | Outpatient (CLI) | payer BC | END 2022-11-30 09:28 | disposition home or self-care (01) | LOC: BICMAMMO 09:27 | PROVIDERS: ATTEND Internal Medicine Hematology & Oncology | DX: Z13.820 Encounter for screening for osteoporosis (principal); T38.6X5A Adverse effect of antigonadotrophins, antiestrogens, antiandrogens, not elsewhere classified, initial encounter; M85.89 Other specified disorders of bone density and structure, multiple sites | CPT/HCPCS: 77080 ==

== ENCOUNTER 2023-12-05 08:20 | Outpatient (CLI) | payer BC | END 2023-12-05 08:21 | disposition home or self-care (01) | LOC: BICMAMMO 08:20 | PROVIDERS: ATTEND Internal Medicine Hematology & Oncology | DX: M85.89 Other specified disorders of bone density and structure, multiple sites (principal); C50.111 Malignant neoplasm of central portion of right female breast; T38.6X5A Adverse effect of antigonadotrophins, antiestrogens, antiandrogens, not elsewhere classified, initial encounter | CPT/HCPCS: 77080 ==